=== PATIENT | female | born 1950 | race Caucasian/White ===

== ENCOUNTER → 2017-02-14 | Outpatient (CLI) | payer OTHER | LOC: FIMAGING 12:06 | PROVIDERS: ATTEND Internal Medicine | DX: Z12.31 Encounter for screening mammogram for malignant neoplasm of breast (principal) | CPT/HCPCS: G0202 ==

== ENCOUNTER → 2017-07-26 | Outpatient (CLI) | payer OTHER | LOC: FIMAGING 10:53 | PROVIDERS: ATTEND Internal Medicine | DX: Z13.820 Encounter for screening for osteoporosis (principal); M85.89 Other specified disorders of bone density and structure, multiple sites ==

== ENCOUNTER → 2017-09-02 | Outpatient (CLI) | payer OTHER | LOC: GIMAGING 12:55 | PROVIDERS: ATTEND Nurse Practitioner Family | DX: R05 Cough (principal); R50.9 Fever, unspecified; R09.02 Hypoxemia; M48.54XA Collapsed vertebra, not elsewhere classified, thoracic region, initial encounter for fracture; R91.8 Other nonspecific abnormal finding of lung field | CPT/HCPCS: 71046-PO ==

== ENCOUNTER → 2017-11-21 | Outpatient (CLI) | payer OTHER | LOC: FIMAGING 09:05 | PROVIDERS: ATTEND Physician Assistant | DX: K44.9 Diaphragmatic hernia without obstruction or gangrene (principal); K21.9 Gastro-esophageal reflux disease without esophagitis ==

== ENCOUNTER 2018-03-13 07:36 | Observation (INO) | payer OTHER ==
[2018-03-13] MEDS ORDERED: ACETAMINOPHEN 500 MG TAB PO ONE (08:04)
[2018-03-13] MEDS ORDERED: NS 2,200 ML IV ONE (08:05)
--- NOTE | 2018-03-13 08:09 | EDPHY ---
H & P Stated Complaint: chills x 1 hour w/ episode vomit, nasal congestion Time Seen by Provider: 03/13/18 08:00 HPI/ROS: CHIEF COMPLAINT: Fever, confusion HISTORY OF PRESENT ILLNESS: Patient is a 67-year-old female who developed a fever and chills this morning as well as mild confusion according to her son. She states she has had a stuffy nose and a dry cough for the last 5 days but did not think much of it. Today she had chills and then vomited once. No diarrhea. She tells me she has no urinary symptoms but that she also has a hard time emptying her bladder at night and had to pee 3 times. She denies abdominal pain. She denies chest pain or shortness of breath. She denies headache. She has not taken any medications. Severity: Moderate Modifying factors: None REVIEW OF SYSTEMS: Constitutional: See HPI EENTM: denies: blurred vision, double vision, nose congestion Respiratory: denies: cough, shortness of breath Cardiac: denies: chest pain, irregular heart rate, lightheadedness, palpitations Gastrointestinal/Abdominal: See HPI denies: abdominal pain, diarrhea, blood streaked stools Genitourinary: See HPI Musculoskeletal: denies: joint pain, muscle pain Skin: denies: lesions, rash, jaundice, bruising Neurological: denies: headache, numbness, paresthesia, tingling, dizziness, weakness Hematologic/Lymphatic: denies: blood clots, easy bleeding, easy bruising Immunologic/allergic: denies: HIV/AIDS, transplant 10 systems reviewed and negative except as noted EXAM: GENERAL: Well-appearing, well-nourished and in no acute distress. HEAD: Atraumatic, normocephalic. EYES: Pupils equal round and reactive to light, extraocular movements intact, sclera anicteric, conjunctiva are normal. ENT: TMs normal, nares patent, oropharynx clear without exudates. Moist mucous membranes. NECK: Normal range of motion, supple without lymphadenopathy or JVD. LUNGS: Breath sounds clear to auscultation bilaterally and equal. No wheezes rales or rhonchi. HEART: Regular rate and rhythm without murmurs, rubs or gallops. ABDOMEN: Soft, nontender, normoactive bowel sounds. No guarding, no rebound. No masses appreciated. BACK: No CVA tenderness, no spinal tenderness, step-offs or deformities EXTREMITIES: Normal range of motion, no pitting or edema. No clubbing or cyanosis. NEUROLOGICAL: Cranial nerves II through XII grossly intact. Normal speech, normal gait. 5/5 strength, normal movement in all extremities, normal sensation , normal reflexes PSYCH: Pleasant, Normal mood, normal affect. SKIN: Warm, dry, normal turgor, no visible rashes or lesions. Source: Patient, Family Exam Limitations: No limitations - Personal History Tetanus Vaccine Date: 2014 - Medical/Surgical History Hx Asthma: No Hx Chronic Respiratory Disease: No Hx Diabetes: No Hx Cardiac Disease: No Hx Renal Disease: No Hx Cirrhosis: No Hx Alcoholism: No Hx HIV/AIDS: No Hx Splenectomy or Spleen Trauma: No Other PMH: Depression, GERD - Family History Significant Family History: No pertinent family hx - Social History Smoking Status: Never smoked Alcohol Use: Sober Drug Use: None Constitutional: Initial Vital Signs Temperature (C) 38.1 C 03/13/18 07:41 Heart Rate 89 03/13/18 07:41 Respiratory Rate 16 03/13/18 07:41 Blood Pressure 115/79 03/13/18 07:41 O2 Sat (%) 93 03/13/18 07:41 O2 Delivery Mode Room Air O2 (L/minute) 1 Allergies/Adverse Reactions: No Known Allergies Allergy (Verified 05/30/15 12:49) Home Medications: Medication Instructions Recorded Bupropion HCl [Wellbutrin Xl] 300 mg PO DAILY@1600 03/13/18 Escitalopram Oxalate [Lexapro] 10 mg PO DAILY@1600 03/13/18 Gabapentin [Neurontin 100 MG (*)] 300 mg PO HS 03/13/18 Gabapentin [Neurontin 400 MG (*)] 400 mg PO DAILY@1200 PRN 03/13/18 Omeprazole 20 mg PO BID 03/13/18 buPROPion XL [Wellbutrin Xl] 150 mg PO DAILY@16 03/13/18 busPIRone [Buspar (*)] 45 mg PO DAILY@1600 03/13/18 Medical Decision Making - Diagnostics Imaging Results: Imaging Impressions Chest X-Ray 03/13/18 08:05 Impression: Left lower lobe consolidation consistent with pneumonia. Imaging: Discussed imaging studies w/ housecalls nurse Radiologist ED Course/Re-evaluation: 9:15 a.m. I discussed the x-ray and lab results with the patient. She is severe sepsis but not septic shock. Appropriate fluids have been ordered as well as antibiotics. Repeat lactate will be performed. I have contacted Dr. Mejia service for admission. Differential Diagnosis: Partial list of the Differential diagnosis considered include but were not limited to; pneumonia, urinary tract infection, sepsis and although unlikely based on the history and physical exam, I also considered meningitis, abdominal infection. Critical Care Time: Critical care time spent by me, Dr. Avalos exclusive with this patient was 35 minutes, exclusive of the PA time exclusive of procedures. The organ system that was at risk was pulmonary and I gave IV fluids, antibiotics, consultation and admission to prevent worsening of the patient's condition - Data Points Laboratory Results: Laboratory Results 03/13/18 08:15 03/13/18 08:15 03/13/18 03/13/18 03/13/18 08:15 08:15 08:15 WBC 6.57 10^3/uL 10^3/uL (3.80-9.50) RBC 4.44 10^6/uL 10^6/uL (4.18-5.33) Hgb 13.5 g/dL g/dL (12.6-16.3) Hct 39.0 % % (38.0-47.0) MCV 87.8 fL fL (81.5-99.8) MCH 30.4 pg pg (27.9-34.1) MCHC 34.6 g/dL g/dL (32.4-36.7) RDW 13.3 % % (11.5-15.2) Plt Count 191 10^3/uL 10^3/uL (150-400) MPV 8.5 fL L fL (8.7-11.7) Neut % (Auto) 90.9 % H % (39.3-74.2) Lymph % (Auto) 6.7 % L % (15.0-45.0) [place] % (Auto) 2.0 % L % (4.5-13.0) Eos % (Auto) 0.0 % L % (0.6-7.6) Baso % (Auto) 0.2 % L % (0.3-1.7) Nucleat RBC Rel Count 0.0 % % (0.0-0.2) Absolute Neuts (auto) 5.97 10^3/uL 10^3/uL (1.70-6.50) Absolute Lymphs (auto) 0.44 10^3/uL L 10^3/uL (1.00-3.00) Absolute Monos (auto) 0.13 10^3/uL L 10^3/uL (0.30-0.80) Absolute Eos (auto) 0.00 10^3/uL L 10^3/uL (0.03-0.40) Absolute Basos (auto) 0.01 10^3/uL L 10^3/uL (0.02-0.10) Absolute Nucleated RBC 0.00 10^3/uL 10^3/uL (0-0.01) Immature Gran % 0.2 % % (0.0-1.1) Immature Gran # 0.01 10^3/uL 10^3/uL (0.00-0.10) RBC/WBC/PLT Morphology TNP Platelet Estimate TNP PT 12.0 SEC SEC (12.0-15.0) INR 0.87 (0.83-1.16) APTT 25.5 SEC SEC (23.0-38.0) VBG Lactic Acid Sodium 142 mEq/L mEq/L (135-145) Potassium 3.8 mEq/L mEq/L (3.3-5.0) Chloride 111 mEq/L H mEq/L (97-110) Carbon Dioxide 22 mEq/l mEq/l (22-31) Anion Gap 9 mEq/L mEq/L (8-16) BUN 21 mg/dL mg/dL (7-23) Creatinine 0.9 mg/dL mg/dL (0.6-1.0) Estimated GFR > 60 Glucose 99 mg/dL mg/dL (70-100) Calcium 9.2 mg/dL mg/dL (8.5-10.4) Total Bilirubin 0.6 mg/dL mg/dL (0.1-1.4) Urine Color Urine Appearance Urine pH Ur Specific [place] Urine Protein Urine Ketones Urine Blood Urine Nitrate Urine Bilirubin Urine Urobilinogen Ur Leukocyte Esterase Urine RBC Urine WBC Ur Epithelial Cells Urine Mucus Urine Glucose 03/13/18 03/13/18 08:15 07:45 WBC RBC Hgb Hct MCV MCH MCHC RDW Plt Count MPV Neut % (Auto) Lymph % (Auto) [place] % (Auto) Eos % (Auto) Baso % (Auto) Nucleat RBC Rel Count Absolute Neuts (auto) Absolute Lymphs (auto) Absolute Monos (auto) Absolute Eos (auto) Absolute Basos (auto) Absolute Nucleated RBC Immature Gran % Immature Gran # RBC/WBC/PLT Morphology Platelet Estimate PT INR APTT VBG Lactic Acid 2.0 mmol/L mmol/L (0.7-2.1) Sodium Potassium Chloride Carbon Dioxide Anion Gap BUN Creatinine Estimated GFR Glucose Calcium Total Bilirubin Urine Color YELLOW Urine Appearance HAZY Urine pH 5.0 (5.0-7.5) Ur Specific [place] 1.017 (1.002-1.030) Urine Protein NEGATIVE (NEGATIVE) Urine Ketones NEGATIVE (NEGATIVE) Urine Blood NEGATIVE (NEGATIVE) Urine Nitrate NEGATIVE (NEGATIVE) Urine Bilirubin NEGATIVE (NEGATIVE) Urine Urobilinogen NEGATIVE EU EU (0.2-1.0) Ur Leukocyte Esterase NEGATIVE (NEGATIVE) Urine RBC NONE SEEN /hpf /hpf (0-3) Urine WBC 1-3 /hpf /hpf (0-3) Ur Epithelial Cells TRACE /lpf /lpf (NONE-1+) Urine Mucus TRACE /lpf /lpf (NONE-1+) Urine Glucose NEGATIVE (NEGATIVE) Medications Given: Discontinued Medications Acetaminophen (Tylenol) 1,000 mg PO EDNOW ONE Stop: 03/13/18 08:05 Last Admin: 03/13/18 08:39 Dose: 1,000 mg Sodium Chloride (Ns) 2,200 mls @ 4,400 mls/hr 30 ml/kg infuse over 30 min ( 2200 ml) IV EDNOW ONE PRN Reason: Protocol Stop: 03/13/18 08:34 Last Admin: 03/13/18 08:40 Dose: 2,200 mls Levofloxacin/Dextrose (Levaquin 750 Mg (Premix)) 150 mls @ 100 mls/hr IV EDNOW ONE PRN Reason: Protocol Stop: 03/13/18 10:45 Last Admin: 03/13/18 09:29 Dose: 150 mls Departure - Departure Disposition: [facility] Acute Clinical Impression: Pneumonia involving left lung Qualifiers: Pneumonia type: due to unspecified organism Lung location: unspecified part of lung Qualified Code(s): J18.9 - Pneumonia, unspecified organism Condition: Fair
[2018-03-13 08:26] LABS: PLATELET COUNT 191 10^3/uL (150-400)
[2018-03-13 08:42] LABS: INR 0.87 (0.83-1.16)
[2018-03-13] MEDS ORDERED: ONDANSETRON DISINTEGRATING 4 MG TAB PO PRN (10:25)
[2018-03-13] MEDS ORDERED: ONDANSETRON 4 MG/2 ML VIAL IVP PRN (10:25)
--- NOTE | 2018-03-13 11:04 | GHP ---
DATE OF ADMISSION: 03/13/2018 ADMITTING DIAGNOSIS: Pneumonia of the left lower lobe. HPI: The patient is a 67-year-old female, who was brought in to the emergency department by her son after he noticed she had increasing confusion and rigors. The patient reports that over the past couple of weeks she has had a productive cough, which has been quite mild, but over the past couple of days she has felt significantly worse and has been experiencing significant chills and rigors. She otherwise denies any recent cold or upper respiratory infection. Denies any sick encounters. Her white count is stable at 6.57. Renal function is stable. Creatinine 0.9, BUN 21. Vitals are stable. She is satting in the low 90s on room air. She is alert and conversing in the emergency department. We will plan to recheck lactic acid, as lactic acid in the ED was 2.0, and can consider additional IV fluids if needed. She has already had 2 L in the emergency department. PAST MEDICAL HISTORY: Includes GERD, anxiety, depression, hyperhomocystinemia, Paula esophagus, and alcoholism in remission. 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 SOCIAL HISTORY: She is a nonsmoker. She has 1 son who is alive. FAMILY HISTORY: Son has asthma, irritable bowel disease. Father is , had dementia. Mother is , had glioblastoma and irritable bowel disease. Sister is alive and has osteoporosis. CURRENT MEDICATIONS: fish oil 1000mg daily, B complex 1 tab daily, vitamin D3 5000U daily, omeprazole 20mg BID, neurontin 100mg 5 capsules daily, soy choice 56mg 2 capsules daily, MK-7 90mcg 1 capsule daily, Buspirone HCl 15mg 3 tabs daily, osteoforce 2 tabs twice daily, lexapro 20mg 2 tabs daily, bupropion HCl ER 300mg daily, methyl guard plus capsule daily REVIEW OF SYSTEMS: GENERAL: Endorses fevers, chills. HEAD: Denies headache. RESPIRATORY: Endorses productive cough over the past couple of weeks, though reports that has been mild. CARDIOVASCULAR: Denies chest pain, palpitations, dizziness, lightheadedness. GASTROINTESTINAL: Denies nausea, vomiting, diarrhea. GENITOURINARY: Denies dysuria. SKIN: Denies itching, rash. PHYSICAL EXAM: GENERAL: Alert, oriented, in no acute distress. HEAD: Normocephalic, atraumatic. EENT: Pupils equal, round, reactive. EOMI. RESPIRATORY: Left lower lobe with rhonchi, productive cough heard during exam. CV: S1, S2. Regular rate and rhythm. No murmurs, rubs, gallops. GI: Positive bowel sounds. ABDOMEN: Soft, nontender, nondistended. EXTREMITIES: No peripheral edema. SKIN: Warm and dry. NEURO: Grossly intact. Answers questions appropriately during exam. ASSESSMENT AND PLAN: 1. Pneumonia. The patient will be admitted for observation overnight. She was started on Levaquin in the emergency department. 2. GERD. continue PPI 3. Depression. Bupropion 300 daily, stable, lexapro 40mg daily 4. Anxiety. Buspirone 45mg daily, stable 5. Hyperhomocystinemia.On methyl guard, monitored outpt 6. Deep venous thrombosis prophylaxis. Sequential compression devices. Encourage ambulation. 7. Disposition: Admit to observation overnight. Anticipate less than 2 midnights in the hospital. We will monitor labs in the morning and continue IV antibiotics for today. /[id number]/MODL MTDD
[2018-03-13] MEDS ORDERED: buPROPion SR 150 MG TAB PO SCH (16:00)
[2018-03-13] MEDS ORDERED: ESCITALOPRAM OXALATE 10 MG TAB PO SCH (16:00)
[2018-03-13] MEDS ORDERED: buPROPion XL 150 MG TAB PO SCH ×2 (16:00)
[2018-03-13] MEDS ORDERED: busPIRone 15 MG TAB PO SCH (16:00)
[2018-03-13] MEDS: ACETAMINOPHEN 325 MG TAB PO PRN ×2 (16:37→20:46)
[2018-03-13] MEDS: ESCITALOPRAM OXALATE 10 MG TAB PO SCH ×2 (16:39→17:18)
[2018-03-13] MEDS: PANTOPRAZOLE SODIUM 40 MG TAB PO SCH ×3 (16:53→20:48)
[2018-03-13] MEDS ORDERED: GABAPENTIN 100 MG CAP PO SCH (21:00)
[2018-03-14 05:14] LABS: PLATELET COUNT 163 10^3/uL (150-400)
[2018-03-14 07:32] VITALS: BP 89/52
[2018-03-14] MEDS: PANTOPRAZOLE SODIUM 40 MG TAB PO SCH (08:00)
--- NOTE | 2018-03-14 09:00 | SOAPPROG ---
SOAP Progress Note Assessment/Plan: Assessment: Plan: 03/14/18 09:00 Pneumonia: lungs clear this morning, afebrile, no hypoxia. BP a little lower than normal for her, WBC up today. Clinically feels well and would like to go home. Will d/c on PO levaquin with plan to f/u in the office on 03/19/18. Anemia: likely dilutional. Will f/u as outpatient. Dispo: d/c to home today. Subjective: Feeling much better today. [place] achey last night but that resolved with tylenol. Has remained afebrile. WBC up this morning, with ongoing neutrophilia. No SOB. Lactic acid normal. Feels ready to go home. Confusion from yesterday resolved. Objective: Vital Signs Temp Pulse Resp BP Pulse Ox 37.1 C 69 16 89/52 L 94 03/14/18 07:31 03/14/18 07:31 03/14/18 07:31 03/14/18 07:31 03/14/18 07:31 Microbiology 03/13/18 09:38 Respiratory Panel (PCR) - Final Nasal, Sinus - Swab No Organism Detected Laboratory Results 03/14/18 04:13 03/14/18 04:13 03/13/18 03/14/18 03/15/18 05:59 05:59 05:59 Intake Total 2700 Balance 2700 PT 12.0 SEC (12.0-15.0) 03/13/18 08:15 INR 0.87 (0.83-1.16) 03/13/18 08:15 General: awake, alert, pleasant Neck: no masses, adenopathy Lungs: clear bilaterally. No rhonchi, rales. MOving air well. Cardiovascular: RRR without murmur. Abdomen: +bowel sounds, soft, NT Extremities: no edema, cyanosis Psych: no confusion ICD10 Worksheet Patient Problems: Problems Problem Status Onset Pneumonia involving left lung Acute
[2018-03-14] MEDS ORDERED: GABAPENTIN 400 MG CAP PO PRN (12:00)
--- NOTE | 2018-03-14 12:06 | ASMTLACE ---
KARL Length of stay for Answers: 1 day current admission Comorbidities - select Answers: Opioid dependence all that apply / Chronic pain Other Notes: GERD # of Emergency department Answers: 1-2 visits in the last 6 months Social determinants Answers: History of substance abuse (ETOH, street drugs, prescription drugs, etc.) Mental health diagnosis (anxiety, depression, pers onality disorders, etc.) Score: 13 Date Signed: 03/14/2018 12:05 PM Electronically Signed By:Mila Meraz RN
--- NOTE | 2018-03-24 21:51 | GDS ---
DISCHARGE DIAGNOSIS: Pneumonia. HOSPITAL COURSE: The patient is a 67-year-old woman admitted for increasing confusion and rigors for 2 days prior to admission. She had had a mild cough for about 2 weeks prior to that. Her chest x-ray showed a left lower lobe consolidation consistent with pneumonia. White blood cell count was not elevated. Lactic acid was high normal at 2.0, blood pressure was 96/52, and she was afebrile. She was started on Levaquin 750 mg IV q.24 hours, as well as IV fluids. She was not hypoxic. She felt much better the following morning, with resolution of chills and confusion. Her blood pressure was stable. Repeat lactic acid was normal. Her white blood cell count did increase to 12.21. She felt well enough to return home on oral antibiotics. She did receive a 2nd dose of IV Levaquin prior to discharge. MEDICATIONS ON DISCHARGE: Levaquin 750 mg p.o. daily for 5 more days, with 1st dose on 03/15/2018. FOLLOWUP: She will follow up in Dr. Douglas' office on 03/19/2018. /[id number]/MODL MTDD
== END 2018-03-14 12:58 | disposition home or self-care (01) ==
LOC: F3E 10:56
PROVIDERS: ADMIT Internal Medicine; ATTEND Internal Medicine
DX: J18.1 Lobar pneumonia, unspecified organism (principal); F41.8 Other specified anxiety disorders; K21.9 Gastro-esophageal reflux disease without esophagitis; E72.11 Homocystinuria; F10.11 Alcohol abuse, in remission; Z85.828 Personal history of other malignant neoplasm of skin; E86.9 Volume depletion, unspecified
CPT/HCPCS: 71046; 96361; 96365; 96376; 99291; G0378; J1956

== ENCOUNTER → 2018-03-28 | Outpatient (CLI) | payer OTHER | LOC: FIMAGING 12:30 | PROVIDERS: ATTEND Internal Medicine | DX: Z12.31 Encounter for screening mammogram for malignant neoplasm of breast (principal) ==

== ENCOUNTER 2018-06-05 08:01 | Emergency (ER) | payer OTHER ==
--- NOTE | 2018-06-05 08:09 | EDPHY ---
H & P Time Seen by Provider: 06/05/18 08:11 - Personal History Tetanus Vaccine Date: 2014 - Medical/Surgical History Hx Asthma: No Hx Chronic Respiratory Disease: No Hx Diabetes: No Hx Cardiac Disease: No Hx Renal Disease: No Hx Cirrhosis: No Hx Alcoholism: No Hx HIV/AIDS: No Hx Splenectomy or Spleen Trauma: No Other PMH: Depression, GERD - Social History Smoking Status: Never smoked Constitutional: Initial Vital Signs Temperature (C) 39 C H 06/05/18 08:01 Heart Rate 91 06/05/18 08:01 Respiratory Rate 18 06/05/18 08:01 Blood Pressure 136/54 H 06/05/18 08:01 O2 Sat (%) 90 L 06/05/18 08:01 O2 Delivery Mode Room Air O2 (L/minute) 2 Allergies/Adverse Reactions: No Known Allergies Allergy (Verified 06/05/18 08:17) Home Medications: Medication Instructions Recorded Bupropion HCl [Wellbutrin Xl] 300 mg PO DAILY@1600 03/13/18 Escitalopram Oxalate [Lexapro 10 40 mg PO DAILY@1600 03/13/18 MG] Gabapentin [Neurontin 100 MG (*)] 300 mg PO HS 03/13/18 Gabapentin [Neurontin 400 MG (*)] 400 mg PO DAILY@1200 PRN 03/13/18 buPROPion XL [Wellbutrin 150mg XL] 150 mg PO DAILY@16 03/13/18 busPIRone [Buspar (*)] 45 mg PO DAILY@1600 03/13/18 Albuterol [Proventil Inhaler] 1 - 2 puffs IH Q4 #1 mdi 06/05/18 Azithromycin [Zithromax] 250 mg PO DAILY #6 tab 06/05/18 Medical Decision Making - Diagnostics Imaging Results: Imaging Impressions Chest X-Ray 06/05/18 08:11 Impression: 1. Consolidation/pneumonia inferior aspect right upper lobe has developed. Consider recurrent aspiration. Imaging: I viewed and interpreted images myself ED Course/Re-evaluation: CHIEF COMPLAINT: Fever HISTORY OF PRESENT ILLNESS: The patient is a 67 y/o female arriving via EMS with a history of pneumonia complaining of a fever of 101.2 degrees. In March, she was seen in this emergency department and diagnosed with pneumonia and rigors. She had a 2 day admission and was given Levaquin. During that admission she also had mild confusion. Today she developed a fever and mild confusion. which felt similar to her prior pneumonia diagnosis. However she also feels achy, has shortness of breath while walking, dizziness and chills. She did receive the influenza vaccination this year. Denies history of COPD, emphysema, supplemental oxygen use, CAD. No headache, chest pain, abdominal pain, urinary or bowel complaints, numbness, paresthesias. REVIEW OF SYSTEMS: A comprehensive 10 system review of systems is otherwise negative aside from elements mentioned in the history of present illness and medical decision making. PHYSICAL EXAM: HR, BP, O2 Sat, RR. Temp noted General Appearance: Alert, well hydrated, appropriate, and non-toxic appearing. Head: Atraumatic without scalp tenderness or obvious injury Eyes: Pupils equal, round, reactive to light and accommodation, EOMI, no trauma , no injection. Ears: Clear bilaterally, no perforation, normal landmarks Nose: Atraumatic, no rhinorrhea, clear. Throat: There is no erythema or exudates, no lesions, normal tonsils, mucus membranes moist. Neck: Supple, 2+ carotid upstroke, nontender, no lymphadenopathy. Respiratory: Bilateral coarse rhonchi. No retractions, no distress, no wheezes, and no accessory muscle use. Cardiovascular: Regular rate and rhythm, no murmurs, rubs, or gallops. Bilateral carotid, radial, dorsalis pedis, and posterior tibial pulses intact. Good capillary refill all extremities. Gastrointestinal: Abdomen is soft, nontender, non-distended, no masses, no rebound, no guarding, no peritoneal signs. Musculoskeletal: Normal active ROM of all extremities, atraumatic. Neurological: Alert, appropriate, and interactive. The patient has normal DTRs and non-focal cranial nerves, motor, sensory, and cerebellar exam. Skin: No rashes, good turgor, no nodules on palpation. Past medical history: Pneumonia, GERD, depression Past surgical history: Denies Family history: Denies Social history: Lives in [place], single, retired DIAGNOSTICS/PROCEDURES/CRITICAL CARE TIME: Chest x-ray: Right lower lobe pneumonia DIFFERENTIAL DIAGNOSIS: The differential diagnosis for the patient's fever included but was not limited to pneumonia, urinary tract infection, viral syndrome, meningitis, and sepsis. MEDICAL DECISION MAKING: The patient is a 67 y/o female arriving via EMS with a history of pneumonia presenting with a fever of 101.2 degrees, mild confusion, shortness of breath while walking, dizziness and chills. In March, she was seen in this emergency department and diagnosed with pneumonia and rigors. She had a 2 day admission and was given Levaquin. On exam she has bilateral coarse rhonchi. I took her off of the supplemental oxygen as she is not hypoxic. Labs and chest x-ray ordered; 1L IV NS administered. 0844: I reviewed patient's chest x-ray reveals a right lower lobe pneumonia. Her labs are normal. 500mg PO Zithromax and 60mg PO Prednisone administered. I have also prescribed her a Z-ronan and an albuterol inhaler. 0847: Reassessed patient and discussed laboratory and imaging findings. I have discussed the prescriptions and advised her to follow up with her primary care provider. Return precautions provided; patient is comfortable with this plan. - Data Points Laboratory Results: Laboratory Results 06/05/18 08:15 06/05/18 06/05/18 06/05/18 08:20 08:15 08:15 WBC RBC Hgb Hct MCV MCH MCHC RDW Plt Count MPV Neut % (Auto) Lymph % (Auto) [place] % (Auto) Eos % (Auto) Baso % (Auto) Nucleat RBC Rel Count Absolute Neuts (auto) Absolute Lymphs (auto) Absolute Monos (auto) Absolute Eos (auto) Absolute Basos (auto) Absolute Nucleated RBC Immature Gran % Immature Gran # Platelet Estimate PT 12.1 SEC SEC (12.0-15.0) INR 0.87 (0.83-1.16) APTT 26.3 SEC SEC (23.0-38.0) VBG Lactic Acid Sodium Pending Potassium Pending Chloride Pending Carbon Dioxide Pending Anion Gap Pending BUN Pending Creatinine Pending Estimated GFR Pending Glucose Pending Calcium Pending Total Bilirubin Pending Urine Color YELLOW Urine Appearance CLEAR Urine pH 6.0 (5.0-7.5) Ur Specific [place] 1.013 (1.002-1.030) Urine Protein NEGATIVE (NEGATIVE) Urine Ketones NEGATIVE (NEGATIVE) Urine Blood NEGATIVE (NEGATIVE) Urine Nitrate NEGATIVE (NEGATIVE) Urine Bilirubin NEGATIVE (NEGATIVE) Urine Urobilinogen NEGATIVE EU EU (0.2-1.0) Ur Leukocyte Esterase NEGATIVE (NEGATIVE) Urine RBC Pending Urine WBC Pending Ur Epithelial Cells Pending Urine Glucose NEGATIVE (NEGATIVE) 06/05/18 06/05/18 08:15 08:15 WBC 6.69 10^3/uL 10^3/uL (3.80-9.50) RBC 4.28 10^6/uL 10^6/uL (4.18-5.33) Hgb 12.9 g/dL g/dL (12.6-16.3) Hct 37.8 % L % (38.0-47.0) MCV 88.3 fL fL (81.5-99.8) MCH 30.1 pg pg (27.9-34.1) MCHC 34.1 g/dL g/dL (32.4-36.7) RDW 13.7 % % (11.5-15.2) Plt Count 204 10^3/uL 10^3/uL (150-400) MPV 9.1 fL fL (8.7-11.7) Neut % (Auto) Pending Lymph % (Auto) Pending [place] % (Auto) Pending Eos % (Auto) Pending Baso % (Auto) Pending Nucleat RBC Rel Count Pending Absolute Neuts (auto) Pending Absolute Lymphs (auto) Pending Absolute Monos (auto) Pending Absolute Eos (auto) Pending Absolute Basos (auto) Pending Absolute Nucleated RBC Pending Immature Gran % Pending Immature Gran # Pending Platelet Estimate Pending PT INR APTT VBG Lactic Acid 2.0 mmol/L mmol/L (0.7-2.1) Sodium Potassium Chloride Carbon Dioxide Anion Gap BUN Creatinine Estimated GFR Glucose Calcium Total Bilirubin Urine Color Urine Appearance Urine pH Ur Specific [place] Urine Protein Urine Ketones Urine Blood Urine Nitrate Urine Bilirubin Urine Urobilinogen Ur Leukocyte Esterase Urine RBC Urine WBC Ur Epithelial Cells Urine Glucose Medications Given: Discontinued Medications Azithromycin (Zithromax) 500 mg PO EDNOW ONE PRN Reason: Protocol Stop: 06/05/18 08:45 Last Admin: 06/05/18 08:48 Dose: 500 mg Sodium Chloride (Ns) 1,000 mls @ 0 mls/hr IV EDNOW ONE; [place] PRN Reason: Protocol Stop: 06/05/18 08:24 Last Admin: 06/05/18 08:34 Dose: 1,000 mls Prednisone (Prednisone) 60 mg PO EDNOW ONE Stop: 06/05/18 08:45 Last Admin: 06/05/18 08:48 Dose: 60 mg Departure - Departure Disposition: Home, Routine, Self-Care Clinical Impression: Pneumonia Condition: Good Instructions: Viral Pneumonia (ED), Bacterial Pneumonia (ED) Additional Instructions: 1. Take the Z-ronan as prescribed. 2. Use the albuterol inhaler as prescribed. 3. Follow-up with your primary doctor within 72 hours. 4. Return to the Emergency Department for fever, chest pain, shortness of breath , increasing pain or other worsening of condition. Referrals: Patient,NotPresent [Unknown] - As per Instructions [facility],. [Clinic] - As per Instructions Prescriptions: Albuterol [Proventil Inhaler] 1 - 2 puffs IH Q4 #1 mdi Azithromycin [Zithromax] 250 mg PO DAILY #6 tab Report Scribed for: Justino Navarro Report Scribed by: Liberty Brock Date of Report: 06/05/18 Time of Report: 08:11
[2018-06-05] MEDS ORDERED: NS 1,000 ML IV ONE (08:23)
[2018-06-05 08:33] LABS: PLATELET COUNT 204 10^3/uL (150-400)
[2018-06-05 08:36] LABS: INR 0.87 (0.83-1.16); PROTIME(PATIENT) 12.1 SEC (12.0-15.0)
[2018-06-05] MEDS ORDERED: predniSONE 20 MG TAB PO ONE (08:44)
[2018-06-05] MEDS ORDERED: AZITHROMYCIN 250 MG TAB PO ONE (08:44)
[2018-06-05 08:52] VITALS: BP 117/64
== END 2018-06-05 09:15 | disposition home or self-care (01) ==
LOC: EDUNIT#
DX: J18.9 Pneumonia, unspecified organism (principal); Z87.01 Personal history of pneumonia (recurrent)
CPT/HCPCS: 71046; 99284; J7512